=== PATIENT | male | born 1960 | race Caucasian/White ===

== ENCOUNTER 2019-07-09 18:07 | Emergency (ER) | payer MEDICAID ==
[~2019-07-09] VITALS: Ht 193 cm; Wt 83.0 kg
[~2019-07-09 18:07] MED LIST: DOLU50TA PO; EMTR1TAB14 PO; ESCI10TA10 PO; LISI-167 PO; LOPE1LIQ6 PO
[2019-07-09 18:10] VITALS: BP 122/83
--- NOTE | 2019-07-09 18:29 | NUR ---
THIS IS A 58 YO MALE COMING IN FOR "I WAS CRYING A LOT FOR A FEW HOURS THAT LED TO NASAL CONGESTION, I BLEW MY NOSE A FEW TIMES AND IT MADE MY EAR CLOG AND POP, NOW I HAVE A LOT OF PRESSURE AND PAIN IN MY RIGHT EAR". PATIENT RATES PAIN 8/10 AND IS CONSTANT. PATIENT ALSO STATES "I'VE BEEN OFF MY HIV MEDS SINCE BEFORE [facility]". VSS, SOME DISTRESS NOTED, PATIENT INTERMITTENTLY CRYING ABOUT RECENT LOSS OF PET. CALL LIGHT IN REACH, DENIES NEEDS AT THIS TIME.
[2019-07-09] MEDS ORDERED: MECLIZINE CHEWABLE 25 MG TAB PO ONE (19:00)
[2019-07-09] MEDS ORDERED: HYDROcodone/APAP 5/325 TABLET PO ONE (19:00)
[2019-07-09] MEDS ORDERED: HYDROcodone/APAP 5/325 TABLET ONE (19:01)
--- NOTE | 2019-07-09 19:20 | NUR ---
PATIENT LEFT WITHOUT PAPERWORK, LEFT IT ON BED. STATES "DON'T BOTHER FOLLOWING ME OUT EITHER"
== END 2019-07-09 19:23 | disposition home or self-care (01) ==
LOC: ED 19:17
DX: H72.91 Unspecified perforation of tympanic membrane, right ear (principal); H92.01 Otalgia, right ear; I10 Essential (primary) hypertension; Z87.891 Personal history of nicotine dependence
CPT/HCPCS: 99283

== ENCOUNTER 2021-03-14 09:22 | Inpatient (IN) | payer MEDICAID, OTHER ==
[~2021-03-14] VITALS: Ht 193 cm; Wt 98.5 kg
--- NOTE | 2021-03-14 09:44 | NUR ---
PT WHEELED TO ROOM AT THIS TIME.
[2021-03-14 10:17] LABS: BASOPHILS % (AUTO) 0 % (0-1); EOSINOPHILS % (AUTO) 0 % (1-7); LYMPHOCYTES % (AUTO) 12 % (22-44); MEAN CORPUSCULAR HEMOGLOBIN 30.9 pg (27.5-34.5); MEAN CORPUSCULAR HGB CONC 34.6 g/dL (33.2-36.2); MONOCYTES % (AUTO) 9 % (2-9); NEUTROPHILS % (AUTO) 79 % (42-75); PLATELET COUNT 257 x10^3/uL (130-400); RED BLOOD COUNT 5.22 x10^6/uL (4.38-5.82); RED CELL DISTRIBUTION WIDTH 12.9 % (9.4-14.8)
--- NOTE | 2021-03-14 10:24 | NUR ---
LATE ENRTY D/T PT CARE: PT HYPOTENSIVE UPON INITIAL CONTACT W/ THIS RN. PT DIPAHORETIC, TACHYCARDIC, TACHYPNEIC. ERP PAGED INTO ROOM D/T BP. PIV STARTED, 1L NS BOLUS STARTED.
[2021-03-14 10:25] LABS: ALANINE AMINOTRANSFERASE 54 U/L (12-78); ANION GAP 12 mmol/L (5-15); CHLORIDE 97 mmol/L (98-107); CREATININE 2.01 mg/dL (0.7-1.3)
[2021-03-14 10:28] LABS: ALKALINE PHOSPHATASE 250 U/L (45-117); BILIRUBIN,TOTAL 0.4 mg/dL (0.2-1.0); TOTAL PROTEIN 7.8 g/dL (6.4-8.2)
[2021-03-14] MEDS ORDERED: SODIUM CHLORIDE 0.9% 1,000ML IVBOLUS ONE ×2 (10:30→11:30)
[2021-03-14] MEDS ORDERED: SODIUM CHLORIDE FLUSH 10ML SYR IVF ONE (10:30)
--- NOTE | 2021-03-14 10:40 | NUR ---
BP 90/53 S/P 1ST NS L
--- NOTE | 2021-03-14 10:42 | NUR ---
THIS RN UNABLE TO START 2ND PIV, SUNDEEP RN AT BEDSIDE FOR ATTEMPT W/ BC DRAW #1.
--- NOTE | 2021-03-14 10:54 | NUR ---
PER ERP 2ND NS L BOLUS STARTED.
[2021-03-14] MEDS: SODIUM CHLORIDE 0.9% 1,000ML IVBOLUS ONE ×2 (10:58→11:00)
--- NOTE | 2021-03-14 11:04 | NUR ---
PT 90% RA, PLACED ON 2L NC
[2021-03-14 11:06] LABS: BASOPHILS % (AUTO) 0 % (0-1); EOSINOPHILS % (AUTO) 0 % (1-7); LYMPHOCYTES % (AUTO) 12 % (22-44); MEAN CORPUSCULAR HEMOGLOBIN 31.2 pg (27.5-34.5); MEAN CORPUSCULAR HGB CONC 34.5 g/dL (33.2-36.2); MEAN PLATELET VOLUME 8.2 fL (7.4-10.4); MONOCYTES % (AUTO) 11 % (2-9); NEUTROPHILS % (AUTO) 78 % (42-75); PLATELET COUNT 201 x10^3/uL (130-400); RED CELL DISTRIBUTION WIDTH 12.9 % (9.4-14.8)
--- NOTE | 2021-03-14 11:28 | NUR ---
BP 90/42 S/P 2ND NS L, 3RD L NS RUNNING.
--- NOTE | 2021-03-14 11:30 | NUR ---
REPORT TO ADRY MANCERA.
--- NOTE | 2021-03-14 12:08 | NUR ---
TELEPHONE CALL TO LANETTE REGARDING LUISANAY.
[2021-03-14] MEDS ORDERED: CEFTRIAXONE 1,000 MG in DEXTROSE 5% 50 ML IVPB ONE (12:30)
[2021-03-14] MEDS ORDERED: AZITHROMYCIN 500 MG in SODIUM CHLORIDE 0.9% 250 ML IV ONE (12:30)
--- NOTE | 2021-03-14 12:34 | NUR ---
BP 88/62 S/P 3RD NS L. ERP UPDATED.
--- NOTE | 2021-03-14 12:35 | NUR ---
TASK RN: ORDER CLARIFICATION PT TO GET 3L NS BOLUS TOTAL.
[2021-03-14] MEDS ORDERED: ACETAMINOPHEN 325 MG TABLET ONE (12:36)
[2021-03-14] MEDS ORDERED: MORPHINE SULFATE 4 MG/ML, 1ML ONE (12:36)
[2021-03-14] MEDS ORDERED: ONDANSETRON 2MG/ML, 2ML ONE ×3 (12:36→20:46)
--- NOTE | 2021-03-14 12:48 | NUR ---
SBAR RPT REC'D FROM [facility] AND ASSUMED PT CARE. PT MOVED TO TRAUMA 3, ALL MONITORS PLACED. PLAN FOR CENTRAL LINE DISCUSSED WITH PT AND QUESTIONS ANSWERED.
[2021-03-14 12:58] LABS: MICROSCOPIC INDICATED
--- NOTE | 2021-03-14 14:02 | NUR ---
PT BP IS BEST WHEN PT IS POSITION SUPINE, WHEN POSITIOND TO LEFT OR RIGHT LATERAL BP DROPS. DISCUSSED WITH DR BARCLAY. ORDER REC'D FOR 1 LITER BOLUS LR.
[2021-03-14 15:03] LABS: CLOSTRIDIUM DIFFICILE ANTIGEN NEGATIVE; CLOSTRIDIUM DIFFICILE TOXIN NEGATIVE (Negative)
--- NOTE | 2021-03-14 15:28 | NUR ---
RECTAL TUBE INSERTED W/O DIFFICULTY, PT TOLLERATED WELL.
--- NOTE | 2021-03-14 15:28 | NUR ---
DR MCCOY AT BEDSIDE, PT ASSESSMENT, POC DISCUSSED AND QUESTIONS ANSWERED.
[2021-03-14] MEDS ORDERED: LACTATED RINGERS 1,000 ML IVBOLUS ONE (15:30)
[2021-03-14] MEDS ORDERED: ONDANSETRON 2MG/ML, 2ML IVPush ONE (15:30)
--- NOTE | 2021-03-14 15:38 | NUR ---
Covering primary for break, VSS. C/o nauseated feeling medicated per order with zofran. Waiting for med/surg bed. Map 80.
--- NOTE | 2021-03-14 15:53 | NUR ---
Report to Debora, pt moved to 27.
[2021-03-14 15:54] LABS: CRYPTOSPORIDIUM ANTIGEN Negative (Negative)
[2021-03-14] MEDS ORDERED: PHARMACY MAY ADJ FOR RENAL FX MC PRN (16:00)
[2021-03-14] MEDS ORDERED: POLYETHYLENE GLYCOL 17 GM PACKET PO PRN (16:00)
[2021-03-14] MEDS ORDERED: METOCLOPRAMIDE 5 MG/ML, 2ML IVPush PRN (16:00)
[2021-03-14] MEDS ORDERED: DOCUSATE 100 MG CAPSULE PO PRN (16:00)
--- NOTE | 2021-03-14 16:00 | NUR ---
report from armand MANCERA
[2021-03-14] MEDS ORDERED: HEPARIN 5,000 UNITS/ML, 1ML ONE (16:20)
[2021-03-14] MEDS ORDERED: METRONIDAZOLE PMX 500MG/100ML 100 ML ONE (16:20)
[2021-03-14] MEDS: HEPARIN 5,000 UNITS/ML, 1ML SQ SCH (16:50)
[2021-03-14] MEDS ORDERED: PHARMACY INSTRUCTION MC PRN (17:00)
[2021-03-14] MEDS ORDERED: REMDESIVIR 200 MG in SODIUM CHLORIDE 0.9% 100 ML IVPB ONE (17:00)
[2021-03-14] MEDS: METRONIDAZOLE PMX 500MG/100ML 100 ML IV SCH (17:30)
[2021-03-14] MEDS: LACTOBACILLUS CHEW TABLET PO SCH ×2 (19:15→23:28)
--- NOTE | 2021-03-14 19:21 | NUR ---
PT REQUESTING HIS HIV MEDS, STATES HE HAS NOT TAKEN THEM TODAY. LEW LEVI OKAY WITH STARTING TONIGHT. VERBAL ORDER REPEATED, VERIFIED DOSES WITH PT AND WILL PLACE ORDER.
[2021-03-14] MEDS ORDERED: EMTRICITABINE/TEN. ALAFE. 200-25 TAB PO ONE (19:30)
[2021-03-14] MEDS ORDERED: DOLUTEGRAVIR 50MG TAB PO ONE (19:30)
--- NOTE | 2021-03-14 22:09 | NUR ---
REPORT TO GURJIT MANCERA
[2021-03-14] MEDS: SODIUM CHLORIDE 0.9% 1,000 ML IV SCH ×2 (22:40→23:31)
[2021-03-14 23:39] VITALS: BP 112/72
[2021-03-14] MEDS: ACETAMINOPHEN 325 MG TABLET PO PRN (23:48)
[2021-03-14] MEDS: ONDANSETRON 2MG/ML, 2ML IVPush PRN (23:48)
[2021-03-15] MEDS: METRONIDAZOLE PMX 500MG/100ML 100 ML IV SCH ×3 (01:09→19:05)
[2021-03-15] MEDS: HEPARIN 5,000 UNITS/ML, 1ML SQ SCH ×3 (01:09→17:38)
[2021-03-15 02:18] VITALS: BP 94/59
[2021-03-15 06:25] LABS: ALBUMIN 2.1 g/dL (3.4-5.0); ANION GAP 4 mmol/L (5-15); CALCIUM 7.9 mg/dL (8.5-10.1); CHLORIDE 105 mmol/L (98-107)
[2021-03-15 06:28] LABS: ALANINE AMINOTRANSFERASE 39 U/L (12-78); ALKALINE PHOSPHATASE 228 U/L (45-117); BILIRUBIN,TOTAL 0.3 mg/dL (0.2-1.0); CREATININE 0.88 mg/dL (0.7-1.3); TOTAL PROTEIN 6.2 g/dL (6.4-8.2)
[2021-03-15 06:40] LABS: BASOPHILS % (AUTO) 0 % (0-1); EOSINOPHILS % (AUTO) 0 % (1-7); LYMPHOCYTES % (AUTO) 12 % (22-44); MEAN CORPUSCULAR HEMOGLOBIN 31.1 pg (27.5-34.5); MEAN CORPUSCULAR HGB CONC 34.3 g/dL (33.2-36.2); MEAN PLATELET VOLUME 7.9 fL (7.4-10.4); MONOCYTES % (AUTO) 8 % (2-9); NEUTROPHILS % (AUTO) 80 % (42-75); PLATELET COUNT 199 x10^3/uL (130-400); RED BLOOD COUNT 4.46 x10^6/uL (4.38-5.82)
[2021-03-15 07:58] VITALS: BP 113/73
[2021-03-15] MEDS: CHOLESTYRAMINE LIGHT 4GM PACKET PO SCH (09:07)
[2021-03-15] MEDS: SODIUM CHLORIDE 0.9% 1,000 ML IV SCH ×2 (09:07→19:05)
[2021-03-15] MEDS: LACTOBACILLUS CHEW TABLET PO SCH ×3 (09:08→20:17)
[2021-03-15] MEDS: DEXAMETHASONE 4 MG/ML, 1ML IVPush SCH (09:09)
[2021-03-15] MEDS: EMTRICITABINE/TEN. ALAFE. 200-25 TAB PO SCH (09:10)
[2021-03-15] MEDS: DOLUTEGRAVIR 50MG TAB PO SCH (09:10)
[2021-03-15] MEDS: POTASSIUM ACID PHOSPHATE 500 MG TABLET.SOL PO SCH ×3 (09:11→20:17)
[2021-03-15 12:17] VITALS: BP 110/80
[2021-03-15] MEDS: REMDESIVIR 100 MG in SODIUM CHLORIDE 0.9% 100 ML IVPB SCH (17:38)
[2021-03-15] MEDS: DIPHENOXYLATE/ATROPINE TABLET PO SCH ×2 (17:38→20:17)
[2021-03-15 19:39] VITALS: BP 115/73
[2021-03-16 01:24] VITALS: BP 103/62
[2021-03-16] MEDS: CEFTRIAXONE 1,000 MG in DEXTROSE 5% 50 ML IVPB SCH (01:26)
[2021-03-16] MEDS: HEPARIN 5,000 UNITS/ML, 1ML SQ SCH ×3 (01:26→17:30)
[2021-03-16] MEDS: GUAIFENESIN/DM 200-20MG, 10ML UDC PO PRN (02:45)
[2021-03-16] MEDS: AZITHROMYCIN 500 MG in SODIUM CHLORIDE 0.9% 250 ML IV SCH (02:45)
[2021-03-16] MEDS: POTASSIUM ACID PHOSPHATE 500 MG TABLET.SOL PO SCH (02:45)
[2021-03-16] MEDS: METRONIDAZOLE PMX 500MG/100ML 100 ML IV SCH ×3 (04:03→20:49)
[2021-03-16] MEDS: SODIUM CHLORIDE 0.9% 1,000 ML IV SCH ×3 (04:04→17:30)
[2021-03-16 06:15] LABS: ANION GAP 4 mmol/L (5-15); CALCIUM 8.2 mg/dL (8.5-10.1); CHLORIDE 109 mmol/L (98-107); CREATININE 0.81 mg/dL (0.7-1.3)
[2021-03-16 06:18] LABS: ALANINE AMINOTRANSFERASE 30 U/L (12-78); ALKALINE PHOSPHATASE 191 U/L (45-117); BILIRUBIN,TOTAL 0.2 mg/dL (0.2-1.0); TOTAL PROTEIN 5.9 g/dL (6.4-8.2)
[2021-03-16] MEDS: CHOLESTYRAMINE LIGHT 4GM PACKET PO SCH ×2 (09:00→09:50)
[2021-03-16 09:30] VITALS: BP 111/75
[2021-03-16] MEDS: LACTOBACILLUS CHEW TABLET PO SCH ×3 (09:49→20:49)
[2021-03-16] MEDS: DEXAMETHASONE 4 MG/ML, 1ML IVPush SCH (09:49)
[2021-03-16] MEDS: EMTRICITABINE/TEN. ALAFE. 200-25 TAB PO SCH (09:49)
[2021-03-16] MEDS: DIPHENOXYLATE/ATROPINE TABLET PO SCH (09:50)
[2021-03-16] MEDS: DOLUTEGRAVIR 50MG TAB PO SCH (09:50)
[2021-03-16] MEDS: GUAIFENESIN ER 600 MG TABLET PO SCH ×2 (11:57→20:49)
[2021-03-16] MEDS ORDERED: LORazepam 2 MG/ML, 1ML IVPush PRN (12:00)
[2021-03-16 13:55] VITALS: BP 109/72
[2021-03-16] MEDS: REMDESIVIR 100 MG in SODIUM CHLORIDE 0.9% 100 ML IVPB SCH (17:30)
[2021-03-16 20:22] VITALS: BP 115/70
[2021-03-17 00:20] VITALS: BP 109/69
[2021-03-17] MEDS: CEFTRIAXONE 1,000 MG in DEXTROSE 5% 50 ML IVPB SCH (01:09)
[2021-03-17] MEDS: SODIUM CHLORIDE 0.9% 1,000 ML IV SCH ×3 (01:09→18:01)
[2021-03-17] MEDS: HEPARIN 5,000 UNITS/ML, 1ML SQ SCH ×3 (01:09→18:02)
[2021-03-17] MEDS: AZITHROMYCIN 500 MG in SODIUM CHLORIDE 0.9% 250 ML IV SCH (02:31)
[2021-03-17] MEDS: METRONIDAZOLE PMX 500MG/100ML 100 ML IV SCH ×3 (03:53→19:26)
[2021-03-17] MEDS: GUAIFENESIN/DM 200-20MG, 10ML UDC PO PRN (05:11)
[2021-03-17 08:20] VITALS: BP 105/64
[2021-03-17] MEDS: CHOLESTYRAMINE LIGHT 4GM PACKET PO SCH (08:32)
[2021-03-17] MEDS: LACTOBACILLUS CHEW TABLET PO SCH ×3 (08:32→20:47)
[2021-03-17] MEDS: DOLUTEGRAVIR 50MG TAB PO SCH (08:32)
[2021-03-17] MEDS: DEXAMETHASONE 4 MG/ML, 1ML IVPush SCH (08:32)
[2021-03-17] MEDS: GUAIFENESIN ER 600 MG TABLET PO SCH ×2 (08:32→20:47)
[2021-03-17] MEDS: EMTRICITABINE/TEN. ALAFE. 200-25 TAB PO SCH (08:32)
[2021-03-17] MEDS: ACETAMINOPHEN 325 MG TABLET PO PRN (13:00)
[2021-03-17 13:19] LABS: BASOPHILS % (AUTO) 0 % (0-1); EOSINOPHILS % (AUTO) 0 % (1-7); LYMPHOCYTES % (AUTO) 4 % (22-44); MEAN CORPUSCULAR HEMOGLOBIN 31.1 pg (27.5-34.5); MEAN CORPUSCULAR HGB CONC 34.2 g/dL (33.2-36.2); MEAN PLATELET VOLUME 8.1 fL (7.4-10.4); MONOCYTES % (AUTO) 5 % (2-9); NEUTROPHILS % (AUTO) 91 % (42-75); PLATELET COUNT 308 x10^3/uL (130-400); RED BLOOD COUNT 4.47 x10^6/uL (4.38-5.82); RED CELL DISTRIBUTION WIDTH 13.1 % (9.4-14.8)
[2021-03-17 13:29] LABS: ALANINE AMINOTRANSFERASE 25 U/L (12-78); ALBUMIN 2.1 g/dL (3.4-5.0); ANION GAP 6 mmol/L (5-15); CALCIUM 8.3 mg/dL (8.5-10.1); CHLORIDE 109 mmol/L (98-107); CREATININE 0.82 mg/dL (0.7-1.3)
[2021-03-17 13:31] LABS: ALKALINE PHOSPHATASE 160 U/L (45-117); BILIRUBIN,TOTAL 0.2 mg/dL (0.2-1.0); TOTAL PROTEIN 5.9 g/dL (6.4-8.2)
[2021-03-17 15:30] VITALS: BP 116/71
[2021-03-17] MEDS: REMDESIVIR 100 MG in SODIUM CHLORIDE 0.9% 100 ML IVPB SCH (18:02)
[2021-03-17 18:41] VITALS: BP 131/77
[2021-03-17] MEDS: ONDANSETRON 2MG/ML, 2ML IVPush PRN (23:48)
[2021-03-18 00:46] VITALS: BP 138/90
[2021-03-18] MEDS: HEPARIN 5,000 UNITS/ML, 1ML SQ SCH ×3 (01:18→17:03)
[2021-03-18] MEDS: CEFTRIAXONE 1,000 MG in DEXTROSE 5% 50 ML IVPB SCH (01:18)
[2021-03-18] MEDS: GUAIFENESIN/DM 200-20MG, 10ML UDC PO PRN (01:28)
[2021-03-18] MEDS: MELATONIN 5 MG TABLET PO PRN ×2 (01:28→21:45)
[2021-03-18] MEDS: AZITHROMYCIN 500 MG in SODIUM CHLORIDE 0.9% 250 ML IV SCH (02:09)
[2021-03-18] MEDS: METRONIDAZOLE PMX 500MG/100ML 100 ML IV SCH ×2 (03:33→11:50)
[2021-03-18] MEDS: SODIUM CHLORIDE 0.9% 1,000 ML IV SCH ×3 (03:34→17:03)
[2021-03-18 06:09] LABS: CHLORIDE 109 mmol/L (98-107)
[2021-03-18 06:14] LABS: ALANINE AMINOTRANSFERASE 26 U/L (12-78); ALKALINE PHOSPHATASE 141 U/L (45-117); ANION GAP 6 mmol/L (5-15); BILIRUBIN,TOTAL 0.2 mg/dL (0.2-1.0); CALCIUM 8.2 mg/dL (8.5-10.1); CREATININE 0.74 mg/dL (0.7-1.3); TOTAL PROTEIN 5.5 g/dL (6.4-8.2)
[2021-03-18 08:55] VITALS: BP 128/78
[2021-03-18] MEDS: CHOLESTYRAMINE LIGHT 4GM PACKET PO SCH (09:00)
[2021-03-18] MEDS: DOLUTEGRAVIR 50MG TAB PO SCH (09:06)
[2021-03-18] MEDS: LACTOBACILLUS CHEW TABLET PO SCH ×3 (09:06→21:01)
[2021-03-18] MEDS: GUAIFENESIN ER 600 MG TABLET PO SCH ×2 (09:06→21:01)
[2021-03-18] MEDS: EMTRICITABINE/TEN. ALAFE. 200-25 TAB PO SCH (09:06)
[2021-03-18] MEDS: DEXAMETHASONE 4 MG/ML, 1ML IVPush SCH (09:06)
[2021-03-18 15:55] VITALS: BP 117/71
[2021-03-18] MEDS ORDERED: DIPHENOXYLATE/ATROPINE TABLET PO PRN (16:00)
[2021-03-18] MEDS: REMDESIVIR 100 MG in SODIUM CHLORIDE 0.9% 100 ML IVPB SCH (17:03)
[2021-03-18 19:16] VITALS: BP 145/79
[2021-03-18] MEDS ORDERED: CALCIUM CARBONATE 500 MG TAB.CHEW PO PRN (22:00)
[2021-03-19 00:02] VITALS: BP 150/83
[2021-03-19] MEDS: AZITHROMYCIN 500 MG in SODIUM CHLORIDE 0.9% 250 ML IV SCH (01:42)
[2021-03-19] MEDS: HEPARIN 5,000 UNITS/ML, 1ML SQ SCH ×2 (01:42→10:53)
[2021-03-19] MEDS: SODIUM CHLORIDE 0.9% 1,000 ML IV SCH ×3 (01:42→14:28)
[2021-03-19 07:47] VITALS: BP 155/91
[2021-03-19 08:00] VITALS: BP 138/76
[2021-03-19] MEDS: ACETAMINOPHEN 325 MG TABLET PO PRN (08:23)
[2021-03-19] MEDS ORDERED: ACID1TAB7 PO (08:38)
[2021-03-19] MEDS ORDERED: CHOL239. PO (08:38)
[2021-03-19] MEDS: CHOLESTYRAMINE LIGHT 4GM PACKET PO SCH ×2 (09:00→10:54)
[2021-03-19] MEDS: DEXAMETHASONE 4 MG/ML, 1ML IVPush SCH (10:53)
[2021-03-19] MEDS: LACTOBACILLUS CHEW TABLET PO SCH (10:53)
[2021-03-19] MEDS: GUAIFENESIN ER 600 MG TABLET PO SCH (10:54)
[2021-03-19] MEDS: EMTRICITABINE/TEN. ALAFE. 200-25 TAB PO SCH (10:54)
[2021-03-19] MEDS: DOLUTEGRAVIR 50MG TAB PO SCH (10:55)
[2021-03-19 12:11] VITALS: BP 130/74
== END 2021-03-19 15:11 | disposition home or self-care (01) | DRG 177 ==
LOC: SUATTDRO 14:10 → ED 17:43 → EDIP 18:12 → 3N 23:03
PROVIDERS: ADMIT Internal Medicine; ATTEND Family Medicine
PROC: XW033E5 Introduction of Remdesivir Anti-infective into Peripheral Vein, Percutaneous Approach, New Technology Group 5 (ICD-10-PCS; principal; 2021-03-14)
DX: U07.1 COVID-19 (principal); N17.0 Acute kidney failure with tubular necrosis; J96.01 Acute respiratory failure with hypoxia; J12.82 Pneumonia due to coronavirus disease 2019; R57.9 Shock, unspecified; E87.1 Hypo-osmolality and hyponatremia; Z21 Asymptomatic human immunodeficiency virus [HIV] infection status; K52.9 Noninfective gastroenteritis and colitis, unspecified; I10 Essential (primary) hypertension; G24.9 Dystonia, unspecified; F32.9 Major depressive disorder, single episode, unspecified; E86.1 Hypovolemia; Z91.19 Patient's noncompliance with other medical treatment and regimen; Z81.8 Family history of other mental and behavioral disorders
CPT/HCPCS: 36415; 71045; 80053; 81001; 82728; 83605; 83615; 83735; 84100; 84145; 85025; 85379; 86361; 87040; 87046; 87086; 87324; 87328; 87329; 87427; 89055; 93005; 99291; G0378; J0456; J0696; J1100; J1644; J2405; U0005; J7030; J7050; J7120; U0003